=== PATIENT | female | born 1940 | race Caucasian/White ===

== ENCOUNTER 2017-05-08 17:26 | Emergency (ER) | payer OTHER ==
[~2017-05-08] VITALS: Ht 162.5 cm; Wt 83.9 kg
[2017-05-08 17:57] VITALS: BP 144/72
== END 2017-05-08 21:08 | disposition home or self-care (01) ==
LOC: ED 17:26
DX: S91.312A Laceration without foreign body, left foot, initial encounter (principal); Z91.040 Latex allergy status; W20.8XXA Other cause of strike by thrown, projected or falling object, initial encounter; Y93.89 Activity, other specified; Y92.89 Other specified places as the place of occurrence of the external cause; Y99.8 Other external cause status